=== PATIENT | male | born 1995 | race Asian ===

== ENCOUNTER 2021-03-21 07:15 | Emergency (ER) | payer OTHER ==
[~2021-03-21] VITALS: Ht 165.1 cm; Wt 65.1 kg
[2021-03-21] MEDS ORDERED: MORPHINE SULFATE 4 MG/ML, 1ML ONE (07:52)
[2021-03-21] MEDS ORDERED: ONDANSETRON 2MG/ML, 2ML ONE (07:52)
[2021-03-21] MEDS ORDERED: ONDANSETRON 2MG/ML, 2ML IVPush ONE (08:00)
[2021-03-21] MEDS ORDERED: MORPHINE SULFATE 4 MG/ML, 1ML IVPush PRN (08:00)
[2021-03-21] MEDS ORDERED: SODIUM CHLORIDE 0.9% 1,000 ML IV ONE (08:00)
--- NOTE | 2021-03-21 08:01 | NUR ---
PIV EST AND PT MED NOTED FOR PAIN 05/07. ELADIA KEY AT BEDSIDE. PLAN OF CARE DISCUSSED AND QUESTIONS ANSWERED. HEAD CT HAS BEEN ORDERED. CALL LIGHT W/I REACH
--- NOTE | 2021-03-21 08:15 | NUR ---
PT TO CT WITH TECH TRANSPORT
[2021-03-21 08:43] VITALS: BP 116/63
--- NOTE | 2021-03-21 08:44 | NUR ---
PT RESTING ON GURNEY WITH EYES CLOSED. ARROUSES TO VERBAL STIM. VSS AND RATES PAIN 4/10. CT RESULTS PENDING, PT AWARE. CALL LIGHT W/I REACH
--- NOTE | 2021-03-21 09:42 | NUR ---
Patient/Caregiver given discharge instructions and they have confirmed that they understand the instructions. Patient ambulatory with steady gait.
== END 2021-03-21 09:43 | disposition home or self-care (01) ==
LOC: ED 08:57
DX: S02.32XA Fracture of orbital floor, left side, initial encounter for closed fracture (principal); R11.2 Nausea with vomiting, unspecified; Y08.89XA Assault by other specified means, initial encounter; Y93.89 Activity, other specified; Y92.009 Unspecified place in unspecified non-institutional (private) residence as the place of occurrence of the external cause; Y99.8 Other external cause status
CPT/HCPCS: 70450; 96361; 96374; 96375; 99284; J2270; J2405; J7030